=== PATIENT | female | born 1955 | race Asian ===

== ENCOUNTER 2021-01-12 18:24 | Inpatient (IN) | payer SELFPAY ==
[~2021-01-12] VITALS: Ht 152.4 cm; Wt 49.4 kg
[2021-01-12 19:22] LABS: BASOPHILS ABSOLUTE AUTO 0.09 K/mm3 (0.00-0.23); BASOPHILS PERCENT AUTO 1 % (0-2); EOSINOPHILS ABSOLUTE AUTO 0.49 K/mm3 (0.00-0.68); EOSINOPHILS PERCENT AUTO 3 % (0-6); Hematocrit 42.1 % (33.0-51.0); Hemoglobin 13.4 g/dL (11.5-16.0); IMMATURE GRAN ABSOLUTE AUTO 0.14 K/mm3 (0.00-0.10); IMMATURE GRAN PERCENT AUTO 1 % (0-1); LYMPHOCYTES ABSOLUTE AUTO 1.91 K/mm3 (0.84-5.20); LYMPHOCYTES PERCENT AUTO 10 % (21-46); MONOCYTES ABSOLUTE AUTO 1.49 K/mm3 (0.16-1.47); MONOCYTES PERCENT AUTO 8 % (4-13); Mean Corpuscular HGB 27.1 pg (26.0-34.0); Mean Corpuscular HGB Conc 31.8 g/dL (31.5-36.5); Mean Corpuscular Volume 85 fL (80-100); Mean Platelet Volume 8.8 fL (9.1-12.4); NEUTROPHILS ABSOLUTE AUTO 15.54 K/mm3 (1.96-9.15); NEUTROPHILS PERCENT AUTO 79 % (41-73); Platelet Count 627 K/mm3 (150-400); RDW Coefficient Variation 14.2 % (11.7-14.2); RDW Standard Deviation 43.7 fL (35.1-46.3); Red Blood Cell Count 4.95 M/mm3 (3.80-5.20); White Blood Cell Count 19.66 K/mm3 (4.00-11.30)
[2021-01-12 19:42] LABS: Alanine Aminotransfer (ALT/SGP 13 U/L (12-78); Albumin, Blood 2.6 g/dL (3.4-5.0); Albumin/Globulin Ratio 0.4 (0.8-1.8); Alk Phos 153 U/L (50-136); Anion Gap 8 mmol/L (6-16); Aspartate Aminotrans (AST/SGOT 20 U/L (12-37); Bilirubin, Total 0.5 mg/dL (0.1-1.0); Blood Urea Nitrogen 19 mg/dL (8-24); Bun/Creatinine Ratio 27.6 (12.0-20.0); CO2, Blood 26 mmol/L (21-32); Calcium, Blood 10.2 mg/dL (8.5-10.1); Chloride, Blood 98 mmol/L (98-108); Creatinine, Blood 0.69 mg/dL (0.40-1.00); Globulin, Blood 6.8 g/dL (2.2-4.0); Glomerular Filtration Rate >60 (60-); Glucose, Blood 168 mg/dL (70-99); Sodium, Blood 132 mmol/L (136-145); Total Protein, Blood 9.4 g/dL (6.4-8.2)
[2021-01-12 20:06] LABS: Source, Urine Clean Catch
[2021-01-12 20:13] LABS: Appearance, Urine Clear (Clear); Blood, Urine 1+ (Neg); Color, Urine Yellow (P-Yellow); Glucose Qualitative, Urine Neg (Neg); Ketones, Urine 1+ (Neg); Leukocyte Esterase, Urine 1+ (Neg); Nitrite, Urine Neg (Neg); Protein, Urine 2+ (Neg); Urobilinogen, Urine 2+ (Normal)
[2021-01-12 20:15] LABS: Bilirubin, Urine 1+ (Neg)
[2021-01-12 20:24] LABS: Bacteria Mod /hpf; Mucus Light (0-Heavy); Red Blood Cells, Urine 0-2 /hpf (0-2); Squamous Epithelial Cells Mod /hpf (Few)
[2021-01-12 20:25] LABS: Amorphous Light (0-Heavy)
[2021-01-12 23:47] LABS: Influenza A, PCR NEGATIVE (NEGATIVE); Influenza B, PCR NEGATIVE (NEGATIVE); Resp Syncytial Virus, PCR NEGATIVE (NEGATIVE); SARS-Cov-2 (COVID-19) PCR, MMC NEGATIVE (NEGATIVE)
--- NOTE | 2021-01-13 06:05 | NUR ---
PT ARRIVED TO UNIT AT 2305. VSS. R LOWER ABD PAIN 5/10. PAIN MEDS GIVEN, SEE EMAR. FLUIDS RUNNING PER ORDER. WBC 19.66. COVID-19 PCR -. PT NPO PER ORDER. PAIN CONTROLLED THROUGH ORDERED PAIN MEDICATION. WILL CONTINUE TO MONITOR THROUGH END OF SHIFT.
[2021-01-13 09:27] LABS: International Normalized Ratio 1.1; Prothrombin Time Results 11.5 Sec (9.7-11.5)
[2021-01-14 04:26] LABS: BASOPHILS ABSOLUTE AUTO 0.04 K/mm3 (0.00-0.23); BASOPHILS PERCENT AUTO 0 % (0-2); EOSINOPHILS ABSOLUTE AUTO 0.22 K/mm3 (0.00-0.68); EOSINOPHILS PERCENT AUTO 2 % (0-6); Hematocrit 31.5 % (33.0-51.0); Hemoglobin 10.1 g/dL (11.5-16.0); IMMATURE GRAN ABSOLUTE AUTO 0.05 K/mm3 (0.00-0.10); IMMATURE GRAN PERCENT AUTO 0 % (0-1); LYMPHOCYTES ABSOLUTE AUTO 1.09 K/mm3 (0.84-5.20); LYMPHOCYTES PERCENT AUTO 8 % (21-46); MONOCYTES ABSOLUTE AUTO 0.84 K/mm3 (0.16-1.47); MONOCYTES PERCENT AUTO 7 % (4-13); Mean Corpuscular HGB 27.3 pg (26.0-34.0); Mean Corpuscular HGB Conc 32.1 g/dL (31.5-36.5); Mean Corpuscular Volume 85 fL (80-100); Mean Platelet Volume 9.1 fL (9.1-12.4); NEUTROPHILS ABSOLUTE AUTO 10.72 K/mm3 (1.96-9.15); NEUTROPHILS PERCENT AUTO 83 % (41-73); Platelet Count 409 K/mm3 (150-400); RDW Coefficient Variation 14.1 % (11.7-14.2); White Blood Cell Count 12.96 K/mm3 (4.00-11.30)
[2021-01-14 04:43] LABS: Anion Gap 7 mmol/L (6-16); Blood Urea Nitrogen 8 mg/dL (8-24); CO2, Blood 28 mmol/L (21-32); Calcium, Blood 8.6 mg/dL (8.5-10.1); Chloride, Blood 99 mmol/L (98-108); Creatinine, Blood 0.62 mg/dL (0.40-1.00); Glomerular Filtration Rate >60 (60-); Glucose, Blood 120 mg/dL (70-99); Potassium, Blood 3.9 mmol/L (3.5-5.5); Sodium, Blood 134 mmol/L (136-145)
--- NOTE | 2021-01-14 06:21 | NUR ---
VSS. PAIN MANAGED WITH ORDERED PAIN MEDICATION THROUGHOUT SHIFT. SEE EMAR. +VOIDING. RECEIVING IV FLUIDS AND IV ABX. DRAIN INSERTION SITE CDI. SCANT DRAINAGE-NOT MEASURABLE. TOLERATING CLEAR LIQUIDS. POSSIBLE DISCHARGE TODAY.
--- NOTE | 2021-01-14 17:30 | NUR ---
PATIENT AAOX4, ABLE TO MAKE NEEDS AND WANTS KNOWN. NO SIGNS OR SYMPTOMS ACUTE DISTRESS NOTED AT THIS TIME. CALL LIGHT AND WATER IN EASY REACH. TOLERATING DIET WITH NO COMPLAINTS OF NAUSEA. PAIN MANAGED WITH PO PAIN MEDS TODAY. DR PENG FLUSHED DRAIN TODAY. MINIMAL OUTPUT NOTED IN DRAIN BAG. PATIENT UP TO SHOWER TODAY, UP AD LILIANA. WILL MONITOR.
[2021-01-15 04:28] LABS: BASOPHILS ABSOLUTE AUTO 0.05 K/mm3 (0.00-0.23); BASOPHILS PERCENT AUTO 0 % (0-2); EOSINOPHILS PERCENT AUTO 4 % (0-6); Hematocrit 33.8 % (33.0-51.0); Hemoglobin 10.6 g/dL (11.5-16.0); IMMATURE GRAN ABSOLUTE AUTO 0.09 K/mm3 (0.00-0.10); IMMATURE GRAN PERCENT AUTO 1 % (0-1); LYMPHOCYTES ABSOLUTE AUTO 1.64 K/mm3 (0.84-5.20); LYMPHOCYTES PERCENT AUTO 11 % (21-46); MONOCYTES ABSOLUTE AUTO 0.94 K/mm3 (0.16-1.47); MONOCYTES PERCENT AUTO 7 % (4-13); Mean Corpuscular HGB 26.8 pg (26.0-34.0); Mean Corpuscular HGB Conc 31.4 g/dL (31.5-36.5); Mean Corpuscular Volume 85 fL (80-100); Mean Platelet Volume 8.7 fL (9.1-12.4); NEUTROPHILS ABSOLUTE AUTO 11.23 K/mm3 (1.96-9.15); NEUTROPHILS PERCENT AUTO 78 % (41-73); Platelet Count 436 K/mm3 (150-400); RDW Coefficient Variation 14.1 % (11.7-14.2); Red Blood Cell Count 3.96 M/mm3 (3.80-5.20); White Blood Cell Count 14.45 K/mm3 (4.00-11.30)
--- NOTE | 2021-01-15 06:05 | NUR ---
PT IS A/OX3. ABLE TO MAKE HER NEEDS KNOWN. NO EVENTS OVER NIGHT. INDEPENDENT WITH AMBULATION IN ROOM. VOIDING WELL, USES BR. ABD PAIN MANAGED WITH PRN NORCO. REFUSED IV PAIN MEDS. PIV TO RAC, 20 G, PATENT. TOLERATING IV ABX WELL, NO ASE NOTED. ABD SOFT, TENDER. NOT DISTENDED. NO BM. NOT PASSING GAS. RLQ PIGTAIL DRAIN PATENT, SCANT PURULENT DRNG IN BAG - NOT ENOUGH DRNG TO MEASURE. DRAIN INSERTION SITE CDI.
--- NOTE | 2021-01-15 12:37 | NUR ---
NAUSEA WHILE DRINKING 2ND CUP OF CONTRAST, REPORTS FEELING SICK. ZOFRAN GIVEN. ABLE TO FINISH CONTRAST. NO EMESIS.
--- NOTE | 2021-01-15 17:43 | NUR ---
SHIFT SUMMARY PT HAS DONE WELL TODAY. WAS TRANSITIONED FROM IV TO PO ABX, PAIN HAS BEEN TOLERABLE w/ PO PAIN MEDS, CT SCAN COMPLETED. UP IND IN ROOM. AMBULATES IN HALLWAYS.
--- NOTE | 2021-01-16 03:42 | NUR ---
SHIFT SUMMARY PT A&O X4 AND IN PLEASENT MOOD T/O SHIFT. PT RESTED IN BED MOST OF NIGHT. DENIES N/V. MEDICATED PER EMAR FOR PAIN. CALL LIGHT W/IN REACH. BT PRESENT IN ALL 4 Q'S. RLQ DRAIN, MIN OUTPUT.
[2021-01-16] MEDS ORDERED: HYDR1TAB94 PO (08:02)
[2021-01-16] MEDS ORDERED: AMOCLA875 PO (08:02)
--- NOTE | 2021-01-16 08:55 | NUR ---
DISCHARGE EDUCATION DEMONSTATED & EXPLAINED DRAIN MANAGEMENT INCLUDING IMPORTANCE OF RECORDING OUTPUT ON LOG SUPPLIED TO PT. PT STATES UNDERSTANDING OF THIS & ALL OTHER DC INFO. WAITING ON RIDE TO DC.
--- NOTE | 2021-01-16 09:15 | NUR ---
AMBULATED OUT w/ RN BY SIDE. DENIES FURTHER NEEDS.
== END 2021-01-16 09:15 | disposition home or self-care (01) | DRG 372 ==
LOC: EDBD 18:24 → ER 18:24 → SURS 22:03
PROVIDERS: Emergency Medicine; ADMIT Surgery
PROC: 0W9G30Z Drainage of Peritoneal Cavity with Drainage Device, Percutaneous Approach (ICD-10-PCS; principal; 2021-01-12)
DX: K35.33 Acute appendicitis with perforation, localized peritonitis, and gangrene, with abscess (principal); E87.1 Hypo-osmolality and hyponatremia; Z20.822 Contact with and (suspected) exposure to COVID-19
CPT/HCPCS: 0241U; 36415; 49405; 74019; 74177; 80048; 80053; 81001; 83690; 85025; 85610; 87070; 87075; 87076; 87086; 87185; 87205; 96374-59; 96375; 99285-25; A9270; J0295; J1170; J1650; J2405; J2543; J3010; J3480; J7120; Q9967

== ENCOUNTER → 2021-04-19 | Outpatient (CLI) | payer OTHER ==
[~2021-04-19] MED LIST: AMOCLA875 PO; HYDR1TAB94 PO
== END ==
LOC: LAB SHORT 15:35 → LAB 15:35
DX: L02.211 Cutaneous abscess of abdominal wall (principal)
CPT/HCPCS: 87015; 87116; 87206

== ENCOUNTER 2023-07-29 12:27 | Day surgery (SDC) | payer MEDICARE, OTHER ==
[2023-07-29 16:15] VITALS: BP 98/64
== END 2023-07-29 16:16 | disposition home or self-care (01) ==
LOC: ATC 12:27
DX: C18.2 Malignant neoplasm of ascending colon (principal); Z51.12 Encounter for antineoplastic immunotherapy

== ENCOUNTER → 2024-03-25 | Outpatient (CLI) | payer MEDICARE, OTHER ==
[~2024-03-25] MED LIST changes: +DICL75ER PO; +DICLOFENAC SOD100 GM TOP; +HYDSUL200 PO; +MULVITA PO; +OFEV100 MG PO; +OMEP20ER PO; +ZYRTEC10 M2 PO
[2024-03-25 17:06] LABS: Albumin, Blood 3.6 g/dL (3.4-5.0); Albumin/Globulin Ratio 0.9 (0.8-1.8); Bilirubin, Total 0.3 mg/dL (0.1-1.0); Calcium, Blood 9.2 mg/dL (8.5-10.1); Creatinine, Blood 0.53 mg/dL (0.40-1.00); Globulin, Blood 4.1 g/dL (2.2-4.0); Potassium, Blood 3.5 mmol/L (3.5-5.5); Total Protein, Blood 7.7 g/dL (6.4-8.2)
== END ==
LOC: LAB SHORT 15:23 → LAB 15:23
PROVIDERS: Family Medicine
DX: R42 Dizziness and giddiness (principal)
CPT/HCPCS: 80053

== ENCOUNTER → 2024-03-29 | Outpatient (CLI) | payer MEDICARE, OTHER ==
[2024-03-29 16:15] LABS: BASOPHILS ABSOLUTE AUTO 0.05 K/mm3 (0.00-0.23); BASOPHILS PERCENT AUTO 1 % (0-2); EOSINOPHILS ABSOLUTE AUTO 0.31 K/mm3 (0.00-0.68); EOSINOPHILS PERCENT AUTO 4 % (0-6); Hematocrit 39.9 % (33.0-51.0); Hemoglobin 12.8 g/dL (11.5-16.0); IMMATURE GRAN ABSOLUTE AUTO 0.02 K/mm3 (0.00-0.10); IMMATURE GRAN PERCENT AUTO 0 % (0-1); LYMPHOCYTES ABSOLUTE AUTO 2.12 K/mm3 (0.84-5.20); LYMPHOCYTES PERCENT AUTO 25 % (21-46); MONOCYTES ABSOLUTE AUTO 0.74 K/mm3 (0.16-1.47); MONOCYTES PERCENT AUTO 9 % (4-13); Mean Corpuscular HGB 31.1 pg (26.0-34.0); Mean Corpuscular HGB Conc 32.1 g/dL (31.5-36.5); Mean Corpuscular Volume 97 fL (80-100); Mean Platelet Volume 10.6 fL (9.1-12.4); NEUTROPHILS ABSOLUTE AUTO 5.19 K/mm3 (1.96-9.15); NEUTROPHILS PERCENT AUTO 62 % (41-73); Platelet Count 174 K/mm3 (150-400); RDW Coefficient Variation 13.5 % (11.7-14.2); Red Blood Cell Count 4.11 M/mm3 (3.80-5.20); White Blood Cell Count 8.43 K/mm3 (4.00-11.30)
[2024-03-29 16:51] LABS: CHOL/HDL RATIO 3.8; Cholesterol 191 mg/dL (50-200); HDL Cholesterol 50 mg/dL (>39); LDL/HDL RATIO 1.4; Low Density Lipoprotein Chol 72 mg/dL (0-110); Triglycerides 345 mg/dL (30-160); Very Low Density Lipoprot Chol 69 mg/dL (6-32)
== END ==
LOC: LAB 14:46 → LAB SHORT 14:46
PROVIDERS: Nurse Practitioner Family
DX: Z13.6 Encounter for screening for cardiovascular disorders (principal); R42 Dizziness and giddiness; R53.83 Other fatigue; Z91.89 Other specified personal risk factors, not elsewhere classified
CPT/HCPCS: 80061; 84443; 85025